=== PATIENT | female | born 1975 | race American Indian/Alaskan Native ===

== ENCOUNTER 2018-03-02 16:27 | Emergency (ER) | payer SELFPAY ==
[2018-03-02] MEDS ORDERED: NACL 0.9% 1000 ML 1,000 ML ONE (16:49)
[2018-03-02] MEDS ORDERED: DILAUDID ONE (16:49)
[2018-03-02] MEDS ORDERED: ZOFRAN ONE (16:51)
[2018-03-02] MEDS ORDERED: BENADRYL IV ONE ×2 (16:52→20:05)
[2018-03-02] MEDS ORDERED: ZOFRAN IV ONE (16:52)
[2018-03-02] MEDS ORDERED: NACL 0.9% 1000 ML 1,000 ML IV ONE ×3 (16:52→21:41)
[2018-03-02] MEDS ORDERED: DILAUDID IV ONE ×3 (16:52→20:05)
[2018-03-02 17:41] LABS: Hematocrit 31.1 % (30.3-42.9); Hemoglobin 10.7 gm/dl (10.1-14.3); Mean Corpuscular HGB Conc 34 % (30-34); Mean Corpuscular Hemoglobin 26 pg (28-32); Mean Corpuscular Volume 77 fl (79-97); Platelet Count 926 K/mm3 (140-440); Red Blood Count 4.04 M/mm3 (3.65-5.03); Red Cell Distribution Width 15.5 % (13.2-15.2)
[2018-03-02 17:57] LABS: Basophils # (Auto) 0.1 K/mm3 (0.0-0.1); Eosinophils # (Auto) 0.5 K/mm3 (0.0-0.4); Eosinophils % (Auto) 4.9 % (0.0-4.3); Lymphocytes # (Auto) 4.4 K/mm3 (1.2-5.4); Lymphocytes % (Auto) 43.9 % (13.4-35.0); Monocytes % (Auto) 10.4 % (0.0-7.3)
[2018-03-02 18:01] LABS: Alanine Aminotransferase 12 units/L (7-56); Albumin 3.7 g/dL (3.9-5); BUN/Creatinine Ratio 16; Blood Urea Nitrogen 8 mg/dL (7-17); Calcium 9.1 mg/dL (8.4-10.2); Hemolysis Index 0; Lipase 10 units/L (13-60)
[2018-03-02 18:23] LABS: Bilirubin,Direct < 0.2 mg/dL (0-0.2)
[2018-03-02 19:58] LABS: INR 1.05 (0.87-1.13)
[2018-03-02] MEDS ORDERED: BENADRYL ONE (19:58)
[2018-03-02 19:59] LABS: Partial Thromboplastin Time 29.2 Sec. (24.2-36.6)
--- NOTE | 2018-03-02 20:03 | Emergency Department Report ---
ED Abdominal Pain HPI - General Chief Complaint: Abdominal Pain Stated Complaint: ABDOMINAL PAIN Time Seen by Provider: 03/02/18 16:47 Source: patient Mode of arrival: Ambulatory Limitations: No Limitations - History of Present Illness Initial Comments: 42-year-old female with past medical history diabetes, pancreatic mass with resection in January presents to the hospital with complaints of abdominal pain, nausea, vomiting, and unable to have a bowel movement. Patient has had multiple abdominal surgeries including previous cholecystectomy, 4 C-sections, and more recently on February 04 had a 15 inch pancreatic tumor removed at [facility]. Patient states because of the size and location of the tumor she also required removal of her spleen, parts of her stomach, part of her liver, and part of her intestines. She states that although her pancreatic cancer and colon cancer to markers were elevated her pathology showed a benign lesion. Patient has had generalized pain greatest in the left upper quadrant that is constant, rated 1017 in intensity, constant, worse with palpation. She has had Abdominal pain and intermittent constipation requiring admission to the hospital since surgery. Patient received an enema last week and was admitted at [facility]. She followed up with her surgeon in 2 days ago the vomiting, by mouth intolerance, worsening pain started the afternoon after that visit with her doctor. Positive chills without documented fever. No dysuria reported. Surgeon at [facility] Dr. Jasmine Hoyos Severity scale (0 -10): 10 - Related Data Home Medications Medication Instructions Recorded Confirmed Last Taken Albiglutide [Tanzeum] 50 mg SQ QWEEK 08/02/16 08/02/16 07/19/16 Metformin HCl [Fortamet ER] 1,000 mg PO QDAY 08/02/16 08/02/16 08/02/16 Previous Rx's Medication Instructions Recorded Last Taken Type Butalb/Acetamin/Caff 50-325-40 1 each PO Q4H PRN #30 tablet 08/02/16 Unknown Rx [Fioricet] Ondansetron [Zofran Odt] 4 mg PO Q8HR PRN #20 tab.rapdis 03/03/18 Unknown Rx Oxycodone HCl/Acetaminophen 1 each PO Q6HR PRN #15 tablet 03/03/18 Unknown Rx [Percocet 10/325 mg] Promethazine [Phenergan] 25 mg IN Q6HR PRN #20 supp.rect 03/03/18 Unknown Rx Allergies Allergy/AdvReac Type Severity Reaction Status Date / Time No Known Allergies Allergy Unverified 06/09/14 14:59 ED Review of Systems ROS: Stated complaint: ABDOMINAL PAIN Other details as noted in HPI Comment: All other systems reviewed and negative ED Past Medical Hx - Past Medical History Hx Diabetes: Yes - Surgical History Hx Cholecystectomy: Yes Additional Surgical History: X 4 open abdominal surgery to remove pancreatic tumor 01/31/18 - Social History Smoking Status: Never Smoker Substance Use Type: None - Medications Home Medications: Home Medications Medication Instructions Recorded Confirmed Last Taken Type Albiglutide [Tanzeum] 50 mg SQ QWEEK 08/02/16 08/02/16 07/19/16 History Butalb/Acetamin/Caff 50-325-40 1 each PO Q4H PRN #30 tablet 08/02/16 Unknown Rx [Fioricet] Metformin HCl [Fortamet ER] 1,000 mg PO QDAY 08/02/16 08/02/16 08/02/16 History Ondansetron [Zofran Odt] 4 mg PO Q8HR PRN #20 tab.rapdis 03/03/18 Unknown Rx Oxycodone HCl/Acetaminophen 1 each PO Q6HR PRN #15 tablet 03/03/18 Unknown Rx [Percocet 10/325 mg] Promethazine [Phenergan] 25 mg IN Q6HR PRN #20 supp.rect 03/03/18 Unknown Rx ED Physical Exam - General Limitations: No Limitations - Other Other exam information: General: No limitations, patient is alert in no acute distress Head exam: Atraumatic, normocephalic Eyes exam: Normal appearance ENT: Moist mucous membrane, normal oropharynx Neck exam: Normal inspection, full range of motion, no meningismus nontender Respiratory exam: Clear to auscultation bilateral, no wheezes, rales, crackles Cardiovascular: Normal rate and rhythm, normal heart sounds Abdomen: Soft, midline vertical, left upper quadrant area of maximal tenderness , diminished bowel sounds. Extremity: Full range of motion normal inspection no deformity Back: Normal Inspection, full range of motion, no tenderness Neurologic: Alert, oriented x3, cranial nerves intact, no motor or sensory deficit Psychiatric: normal affect, normal mood Skin: Warm, dry, intact ED Course Vital Signs 03/02/18 03/02/18 03/02/18 16:34 19:30 19:36 Temperature 98.8 F 98.3 F Pulse Rate 112 H 82 94 H Respiratory 22 20 45 H Rate Blood Pressure 123/91 Blood Pressure 153/89 [Left] O2 Sat by Pulse 100 99 Oximetry 03/02/18 03/02/18 03/02/18 19:46 20:00 20:16 Temperature Pulse Rate 89 82 81 Respiratory 12 22 17 Rate Blood Pressure 153/89 149/96 149/96 Blood Pressure [Left] O2 Sat by Pulse 99 98 Oximetry 03/02/18 03/02/18 03/02/18 20:30 20:46 21:00 Temperature Pulse Rate 88 81 94 H Respiratory 15 32 H 40 H Rate Blood Pressure 149/96 149/96 140/82 Blood Pressure [Left] O2 Sat by Pulse 96 95 99 Oximetry 03/02/18 03/02/18 03/02/18 21:16 21:30 21:46 Temperature Pulse Rate 100 H 101 H 98 H Respiratory 19 40 H 32 H Rate Blood Pressure 140/82 140/82 140/82 Blood Pressure [Left] O2 Sat by Pulse 96 96 95 Oximetry 03/02/18 03/02/18 03/02/18 22:00 22:16 22:30 Temperature Pulse Rate 85 91 H 94 H Respiratory 33 H 14 17 Rate Blood Pressure 162/85 140/82 140/82 Blood Pressure [Left] O2 Sat by Pulse 99 99 98 Oximetry 03/02/18 22:39 Temperature Pulse Rate Respiratory 18 Rate Blood Pressure Blood Pressure [Left] O2 Sat by Pulse Oximetry - Reevaluation(s) Reevaluation #1: 03/03/18 00:48 pt without further vomiting, pain controlled, able to take po prior to dc - Consultations Consultation #1: 03/02/18 21:30 case d/w Dr. Hoyos, rec enema, ivf, reassess, if feels better and elijah po may be d/veronica to f/u ED Medical Decision Making - Lab Data Result diagrams: 03/02/18 17:12 03/02/18 17:12 - Medical Decision Making It took 3 L of NS to give patient Patient urinated without providing a sample for UA patient was significantly dehydrated since it took 3 L of normal saline order to produce urine. Urinalysis cancel this patient does not have dysuria, leukocytosis, or fever. She will be discharged home on medication for pain and nausea. Patient states that previously she was on oxycodone 10 and tramadol as needed for pain. She did not have anything at home for nausea vomiting there for Phenergan and Zofran prescribed. Patient did receive per other soapsuds enema with some output but states she did not want to complete the whole back. CT does not reveal any significant fecal impaction therefore she will be discharged home with follow-up. She was cautioned that narcotics can cause constipation so she should take sparingly. Pt has previously been prescrived senan, colace and lactulose. SHe could not tolerate the lactulose due to vomiting. She can continue that at as needed since vomiting has resolved - Differential Diagnosis obstruction, constipation, postoperative infection Critical Care Time: No Critical care attestation.: If time is entered above; I have spent that time in minutes in the direct care of this critically ill patient, excluding procedure time. ED Disposition Clinical Impression: Abdominal pain, Post-op pain, Hypokalemia, Vomiting Disposition: OP ADMIT IP TO THIS HOSP Is pt being admited?: No Does the pt Need Aspirin: No Condition: Stable Instructions: Abdominal Pain (ED), Acute Nausea and Vomiting (ED), Hypokalemia (ED) Additional Instructions: Take the medications as prescribed. Use the Percocet sparingly because it may worsen constipation. Take your previously prescribed lactulose as needed for for constipation. Follow-up with your doctor for further evaluation. Return is symptoms worsen as indicated by your discharge instructions Prescriptions: Ondansetron [Zofran Odt] 4 mg PO Q8HR PRN #20 tab.rapdis PRN Reason: Nausea And Vomiting Oxycodone HCl/Acetaminophen [Percocet 10/325 mg] 1 each PO Q6HR PRN #15 tablet PRN Reason: Pain Promethazine [Phenergan] 25 mg IN Q6HR PRN #20 supp.rect PRN Reason: Nausea And Vomiting Referrals: Jasmine Hoyos [Other] - 3-5 Days Time of Disposition: 00:47
[2018-03-02] MEDS ORDERED: REGLAN IV ONE (20:06)
--- NOTE | 2018-03-02 20:57 | Cat Scan Report ---
FINAL REPORT PROCEDURE: CT ABDOMEN PELVIS W CON TECHNIQUE: Computerized axial tomography of the abdomen and pelvis was performed after the IV injection of iodinated nonionic contrast. HISTORY: post op 6 wk pancreatic tumor pain distention COMPARISON: No prior studies are available for comparison. FINDINGS: Liver is of inhomogeneous density most likely secondary to inhomogeneous fatty infiltration. A focal hepatic lesion is not identified. 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 There is evidence of prior pancreatic resection. Left adrenal is not well visualized most likely due to postoperative changes. Right adrenal is unremarkable. Bilateral kidneys demonstrate uniform enhancement without hydronephrosis. Urinary bladder is partially filled with normal outlines. Aorta is of normal caliber. Minimal free fluid is noted in the pelvic cavity. There is no free air. Status post cholecystectomy. Small bowel loops are within normal limits. Omental fat demonstrates irregular areas of induration. Appendix is normal. 1.8 x 2.4 x 2.0 centimeter hypodense lesion is noted in the pancreatic bed as seen in image 22 of series 4. IMPRESSION: 2.4 x 2.0 x 1.8 centimeter hypodense lesion in the region of the pancreatic bed most likely represents a postoperative fluid collection such as a lymphocele. Follow-up studies are recommended rule out other etiologies such as abscess. Inhomogeneous density of liver is consistent with fatty infiltration. Mild degree ascites
[2018-03-02] MEDS ORDERED: K-DUR PO ONE (21:33)
[2018-03-03 01:07] VITALS: BP 141/91
== END 2018-03-03 01:07 | disposition admitted as inpatient to this hospital (09) ==
LOC: ED 16:27
DX: E87.6 Hypokalemia (principal); E11.9 Type 2 diabetes mellitus without complications; R10.9 Unspecified abdominal pain; Z90.49 Acquired absence of other specified parts of digestive tract
CPT/HCPCS: 36415; 74177; 80048; 80074; 82140; 82150; 83690; 83735; 84702; 84703; 85025; 85610; 85730; 86850; 86900; 86901; 87040; 96361; 96374; 96375; 99284; J1170; J1200; J2405; J2765; J7030; Q9967

== ENCOUNTER 2018-04-06 23:12 | Emergency (ER) | payer OTHER ==
[2018-04-07 00:02] VITALS: BP 143/97
[2018-04-07 00:31] LABS: Hematocrit 34.9 % (30.3-42.9); Hemoglobin 11.2 gm/dl (10.1-14.3); Mean Corpuscular HGB Conc 32 % (30-34); Mean Corpuscular Volume 75 fl (79-97); Platelet Count 541 K/mm3 (140-440); Red Blood Count 4.66 M/mm3 (3.65-5.03); Red Cell Distribution Width 15.9 % (13.2-15.2)
[2018-04-07 00:41] LABS: Mean Corpuscular Hemoglobin 24 pg (28-32)
[2018-04-07 01:12] LABS: Alanine Aminotransferase 13 units/L (7-56); Albumin 3.8 g/dL (3.9-5); BUN/Creatinine Ratio 12; Blood Urea Nitrogen 6 mg/dL (7-17); Hemolysis Index 2
[2018-04-07 02:35] LABS: Total Cells Counted 100
[2018-04-07 02:36] LABS: Anisocytosis 1+; Hypochromasia 1+; Large Platelets Few; Platelet Estimate Appears Increased; Target Cells Few
[2018-04-07 06:06] LABS: Amorphous Crystals,Urine 2+; Bacteria,Urine 2+ /HPF (Negative); Bilirubin,Urine NEG (Negative); Blood,Urine NEG (Negative); Color,Urine Yellow (Yellow); Mucus,Urine 3+ /HPF; Protein,Urine <15 mg/dL mg/dL (Negative); Urobilinogen,Urine < 2.0 mg/dL (<2.0)
== END 2018-04-07 02:20 | disposition left against medical advice (07) ==
LOC: ED 23:12
DX: M54.5 Low back pain (principal); Z53.21 Procedure and treatment not carried out due to patient leaving prior to being seen by health care provider
CPT/HCPCS: 36415; 80053; 81001; 84703; 85007; 85025

== ENCOUNTER 2018-07-11 18:09 | Emergency (ER) | payer OTHER ==
--- NOTE | 2018-07-11 19:11 | Cat Scan Report ---
FINAL REPORT EXAM: CT HEAD/BRAIN WO CON HISTORY: severe OCASIO, no hx of OCASIO TECHNIQUE: 2.5 millimeter axial images from the skullbase to the vertex. Comparison: None FINDINGS: There is no evidence of an acute intracranial process, intracranial hemorrhage or mass effect. The ventricles are normal size. The visualized portions of the orbits, paranasal and mastoid sinuses are unremarkable. The bony structures are unremarkable in appearance. IMPRESSION: 1. No evidence of an acute intracranial process, intracranial hemorrhage or mass effect. If there is a clinical suspicion of an acute intracranial process and if further imaging is required, MRI may be helpful.
[2018-07-11 19:48] LABS: Hematocrit 33.7 % (30.3-42.9); Hemoglobin 11.1 gm/dl (10.1-14.3); Mean Corpuscular HGB Conc 33 % (30-34); Mean Corpuscular Volume 76 fl (79-97); Platelet Count 490 K/mm3 (140-440); Red Blood Count 4.42 M/mm3 (3.65-5.03); Red Cell Distribution Width 16.2 % (13.2-15.2)
[2018-07-11 20:11] LABS: Alanine Aminotransferase 9 units/L (7-56); Albumin 3.8 g/dL (3.9-5); BUN/Creatinine Ratio 13; Blood Urea Nitrogen 9 mg/dL (7-17); Calcium 8.8 mg/dL (8.4-10.2); Hemolysis Index 2
[2018-07-11 20:16] LABS: Mean Corpuscular Hemoglobin 25 pg (28-32)
[2018-07-12] MEDS ORDERED: BENADRYL IV ONE (00:29)
[2018-07-12] MEDS ORDERED: REGLAN IV ONE (00:29)
[2018-07-12] MEDS ORDERED: TORADOL IV ONE (00:29)
[2018-07-12] MEDS ORDERED: NACL 0.9% 1000 ML 1,000 ML IV ONE (00:29)
--- NOTE | 2018-07-12 00:33 | Emergency Department Report ---
ED Headache HPI - General Chief Complaint: Headache Stated Complaint: SEVERE HEADACHE Time Seen by Provider: 07/12/18 00:01 Source: patient Exam Limitations: no limitations - History of Present Illness Initial Comments: 42-year-old female with reports of right temporal headache 2 days. Patient denies history of headaches, but states she was seen at [facility] for headache about one year ago. Patient states she has not taken any medication at home. Denies fever, URI symptoms, nausea, vomiting. Timing/Duration: other (2 days) Quality: severe, constant Recent Head Trauma: no recent headache/trauma Modifying Factors: improves with: rest. worse with: exposure to light Associated Symptoms: denies: confusion, fever/chills, nausea/vomiting, nasal congestion, nasal drainage, numbness in legs/feet, stiff neck Allergies/Adverse Reactions: Allergies No Known Allergies Allergy (Unverified 06/09/14 14:59) Home Medications: Ambulatory Orders Albiglutide [Tanzeum] 50 mg SQ QWEEK 08/02/16 Butalb/Acetamin/Caff 50-325-40 [Fioricet] 1 each PO Q4H PRN #30 tablet 08/02/16 Metformin HCl [Fortamet ER] 1,000 mg PO QDAY 08/02/16 Ondansetron [Zofran Odt] 4 mg PO Q8HR PRN #20 tab.rapdis 03/03/18 Oxycodone HCl/Acetaminophen [Percocet 10/325 mg] 1 each PO Q6HR PRN #15 tablet 03/03/18 Promethazine [Phenergan] 25 mg ID Q6HR PRN #20 supp.rect 03/03/18 Butalb/Acetamin/Caff 50-325-40 [Fioricet] 1 tab PO Q6HR PRN #10 tab 07/12/18 ED Review of Systems ROS: Stated complaint: SEVERE HEADACHE Other details as noted in HPI Comment: All other systems reviewed and negative Constitutional: denies: chills, fever ENT: denies: throat pain Respiratory: denies: cough Gastrointestinal: denies: nausea, vomiting Neurological: headache. denies: numbness, paresthesias, confusion ED Past Medical Hx - Past Medical History Hx Diabetes: Yes - Surgical History Hx Cholecystectomy: Yes Additional Surgical History: X 4 open abdominal surgery to remove pancreatic tumor 02/04/18 - Social History Smoking Status: Never Smoker Substance Use Type: None - Medications Home Medications: Home Medications Medication Instructions Recorded Confirmed Last Taken Type Albiglutide [Tanzeum] 50 mg SQ QWEEK 08/02/16 08/02/16 07/19/16 History Butalb/Acetamin/Caff 50-325-40 1 each PO Q4H PRN #30 tablet 08/02/16 Unknown Rx [Fioricet] Metformin HCl [Fortamet ER] 1,000 mg PO QDAY 08/02/16 08/02/16 08/02/16 History Ondansetron [Zofran Odt] 4 mg PO Q8HR PRN #20 tab.rapdis 03/03/18 Unknown Rx Oxycodone HCl/Acetaminophen 1 each PO Q6HR PRN #15 tablet 03/03/18 Unknown Rx [Percocet 10/325 mg] Promethazine [Phenergan] 25 mg ID Q6HR PRN #20 supp.rect 03/03/18 Unknown Rx Butalb/Acetamin/Caff 50-325-40 1 tab PO Q6HR PRN #10 tab 07/12/18 Unknown Rx [Fioricet] ED Physical Exam - General Limitations: No Limitations General appearance: alert, in no apparent distress - Head Head exam: Present: atraumatic, normocephalic - Eye Eye exam: Present: normal appearance, PERRL, EOMI - ENT ENT exam: Present: mucous membranes moist - Neck Neck exam: Present: normal inspection, full ROM. Absent: meningismus - Respiratory Respiratory exam: Present: normal lung sounds bilaterally. Absent: respiratory distress - Cardiovascular Cardiovascular Exam: Present: regular rate, normal rhythm - GI/Abdominal GI/Abdominal exam: Present: soft. Absent: tenderness - Extremities Exam Extremities exam: Present: normal inspection - Neurological Exam Neurological exam: Present: alert, oriented X3. Absent: CN II-XII intact, motor sensory deficit - Psychiatric Psychiatric exam: Present: normal affect, normal mood - Skin Skin exam: Present: warm, dry, intact, normal color. Absent: rash ED Course Vital Signs 07/11/18 07/12/18 07/12/18 18:36 00:03 01:48 Temperature 98.6 F 97.9 F Pulse Rate 76 66 Respiratory 16 18 18 Rate Blood Pressure 131/84 Blood Pressure 142/88 [Left] O2 Sat by Pulse 99 99 Oximetry 07/12/18 07/12/18 02:00 02:18 Temperature Pulse Rate 74 Respiratory 16 16 Rate Blood Pressure Blood Pressure 145/84 [Left] O2 Sat by Pulse 100 Oximetry ED Medical Decision Making - Lab Data Result diagrams: 07/11/18 19:05 07/11/18 19:05 - Radiology Data Radiology results: report reviewed, image reviewed - Medical Decision Making 41-year-old female with right-sided temporal headache. Normal neuro exam. CT normal, labs normal. Patient reported pain improvement with IV fluids and meds. Advised outpatient follow-up. Pt given return precautions. - Differential Diagnosis tension OCASIO, migraine OCASIO, cluster OCASIO Critical care attestation.: If time is entered above; I have spent that time in minutes in the direct care of this critically ill patient, excluding procedure time. ED Disposition Clinical Impression: Acute headache Disposition: DC-01 TO HOME OR SELFCARE Is pt being admited?: No Condition: Stable Instructions: Acute Headache (ED) Prescriptions: Butalb/Acetamin/Caff 50-325-40 [Fioricet] 1 tab PO Q6HR PRN #10 tab PRN Reason: Headache Referrals: CECELIA LAINEZ MD [Primary Care Provider] - 3-5 Days GRECIA WOOD MD [Staff Physician] - 3-5 Days Forms: Accompanied Note, Work/School Release Form(ED) Time of Disposition: 02:47
[2018-07-12 02:28] VITALS: BP 145/84
== END 2018-07-12 03:49 | disposition home or self-care (01) ==
LOC: ED 18:09
DX: R51 Headache (principal); E11.9 Type 2 diabetes mellitus without complications; Z90.49 Acquired absence of other specified parts of digestive tract
CPT/HCPCS: 36415; 70450; 80053; 85027; 96374; 96375; 99284; J1200; J1885; J2765; J7030